=== PATIENT | female | born 1955 | race Two or more races ===

== ENCOUNTER 2022-04-07 19:55 | Emergency (ER) | payer OTHER ==
[~2022-04-07] VITALS: Ht 175.3 cm; Wt 108.0 kg
[2022-04-07] MEDS ORDERED: FAMOTIDINE40 MG PO (20:09)
[2022-04-07] MEDS ORDERED: METOPROLOL SUC100 MG PO (20:09)
[2022-04-07] MEDS ORDERED: AMLODIPINE BESYL5 MG PO (20:09)
[2022-04-07] MEDS ORDERED: SYNTHROID100 MCG PO (20:09)
== END 2022-04-07 21:59 | disposition home or self-care (01) ==
LOC: ER 19:55
DX: R10.9 Unspecified abdominal pain (principal); I10 Essential (primary) hypertension; E03.9 Hypothyroidism, unspecified; K57.30 Diverticulosis of large intestine without perforation or abscess without bleeding